=== PATIENT | female | born 1950 | race Caucasian/White ===

== ENCOUNTER 2022-06-29 22:35 | Emergency (ER) | payer MEDICARE, OTHER, SELFPAY ==
[2022-06-29 22:37] VITALS: BP 147/74; PULSE 64; RESP 14; TEMP 36.6; O2SAT 100
--- NOTE | 2022-06-29 23:21 | PC.NURSE ---
patient states her pain is gone and left from waiting room
== END 2022-06-29 23:21 | disposition left against medical advice (07) ==
PROVIDERS: PCP Internal Medicine
DX: R10.9 Unspecified abdominal pain (principal)
CPT/HCPCS: 99199

== ENCOUNTER 2022-06-30 12:36 | Emergency (ER) | payer MEDICARE, OTHER, SELFPAY ==
--- NOTE | ~2022-06-30 | CT_ITS ---
EXAMINATION: CTA chest PE abdomen pel DATE: 06/30/2022 15:04 INDICATION: Right flank pain. TECHNIQUE: Computed tomography angiography (CTA) of the chest was performed with 100 mL Omnipaque-350 intravenous contrast timed to evaluate the pulmonary arteries. Coronal maximum intensity projection 3D-reconstructions were created by the technologist. Computed tomography (CT) of the abdomen and pelv is was performed with intravenous contrast. Automated exposure control and iterative reconstruction t echnique were employed. The dose-length product was 377.74 mGy-cm. COMPARISON: Chest CT 09/14/2016, CT abdomen and pelvis 04/10/2012 FINDINGS: CTA chest: There is mild scarring at the lung apices. There is mild atelectasis bilaterally. No pleur al effusion. Cardiomegaly is noted. There are coronary artery calcifications. No pericardial effusion . There is no pulmonary embolus. There is mild thoracic spondylosis. There is mild chronic anterior w edging of multiple midthoracic vertebral bodies. CT abdomen and pelvis: There are cysts in the liver measuring up to 8 mm. The gallbladder, spleen, pa ncreas, adrenal glands, and right kidney are normal. There are cysts in left kidney measuring up to 4 mm. There is mild left hydronephrosis. There is a chronic phlebolith in left ovarian vein. There are calcified fibroids in the uterus. There is diverticulosis of the colon without evidence of diverticu litis. There are no dilated loops of bowel. The appendix is normal. There are no pathologically enlar ged lymph nodes. There is no free intraperitoneal fluid. There is mild lumbar spondylosis. IMPRESSION: 1. No pulmonary embolus. 2. Mild left hydronephrosis, new from 04/10/2012. Reviewed, dictated and finalized at location E.
[2022-06-30 12:45] VITALS: BP 145/60; PULSE 69; RESP 16; TEMP 36.6; O2SAT 100
[2022-06-30 13:01] LABS: Basophils Percent Auto 0.3 % (0.2-1.2); Eosinophils Percent Auto 0.2 % (0-4.4); Hematocrit 42.1 % (37.0-47.0); Hemoglobin 14.2 g/dL (12.0-15.0); Immature Granulocyte Absolute 0.02 K/mm3 (0.00-0.031); Immature Granulocyte Percent A 0.2 % (0-0.5); Lymphocytes Absolute Auto 1.15 K/mm3 (0.9-3.2); Lymphocytes Percent Auto 12.6 % (18.3-44.2); Mean Corpuscular HGB Conc 33.7 g/dl (32-36); Mean Corpuscular Hemoglobin 30.3 pg (26-34); Mean Platelet Volume 10.8 fl (7.4-10.4); Monocytes Absolute Auto 0.5 K/mm3 (0.1-0.6); Monocytes Percent Auto 4.9 % (2.6-8.5); Neutrophils Absolute Auto 7.5 K/mm3 (1.3-6.7); Neutrophils Percent Auto 81.8 % (45.5-73.1); Platelet Count Result 257 k/mm3 (150-375); Red Blood Count 4.68 M/mm3 (4.2-5.4); Red Cell Distribution Width 14.6 % (11.5-14.5); White Blood Count 9.1 K/mm3 (4.5-10.0)
[2022-06-30 13:05] LABS: Appearance Urine Clear (Clear); Bilirubin Urine Negative (Negative); Blood Urine Negative (Negative); Color Urine Yellow (Yellow); Glucose Urine UA Negative (Negative); Ketones Urine 1+ mg/dL (Negative); Leukocyte Esterase Ur Negative LEU/UL (Negative); Nitrate Urine Negative (Negative); Protein Urine Negative (Negative); Specific Grav Ur 1.014 (1.001-1.035); Urobilinogen Urine 0.2 mg/dL (<2.0); pH Urine 5.5 (5.0-9.0)
[2022-06-30 13:19] LABS: Add Urine Microscopic? NO
[2022-06-30 13:58] LABS: Alanine Aminotransferase 25 U/L (6-35); Albumin Level 4.8 g/dL (3.5-5.1); Alkaline Phosphatase 85 U/L (38-126); Anion Gap 6 mmol/L (8-16); Aspartate Amino Transferase 29 U/L (14-36); Bilirubin,Total 0.6 mg/dL (0.2-1.3); Blood Urea Nitrogen 14 mg/dL (7-17); Calcium 9.9 mg/dL (8.4-10.2); Carbon Dioxide 30 mmol/L (22-30); Chloride 101 mmol/L (98-107); Estimated CRCL calculation 51 ml/min; Estimated Glomerular Filt Rate > 60; Glucose 82 mg/dL (65-110); Potassium 4.4 mmol/L (3.4-5.0); Sodium 137 mmol/L (137-145)
--- NOTE | 2022-06-30 14:49 | ED.GENADULT ---
HPI - General Adult General Chief complaint: Urogenital-Female Stated complaint: back pain Time Seen by Provider: 06/30/22 13:59 History of Present Illness HPI narrative: 72-year-old female with history of kidney stones, IBS presented to the emergency department for evaluation of flank pain and abdominal pain. Patient states that she did have a stem cell treatment for her left knee on March 03 and approximate 2 weeks ago she had a booster for this. Patient reports after the procedure she was having some lower back pain and communicated this to her physician. Patient states over the last few days that she has increased flank pain. The flank pain initially started on the right but after arrival to the emergency department it is now on the left. Patient also reports some lower abdominal pain. Patient reports he does have a history of kidney stones and does have a history of IBS. Patient states he did have a bowel movement yesterday that was normal but then the bowel movement did progressed to some diarrhea. Related Data Allergies Allergy/AdvReac Type Severity Reaction Status Date / Time ciprofloxacin Allergy Intermediate Rash Verified 11/13/17 04:27 Sulfa (Sulfonamide Allergy Mild Verified 11/13/17 04:27 Antibiotics) Review of Systems Review of Systems: All systems reviewed & are unremarkable except as noted in HPI and below Exam Narrative: APPEARANCE: Well appearing, no pain, no distress, well-nourished. HEAD: normocephalic, atraumatic. EYES: PERRLA/EOMI, conjunctivae clear. NOSE: Normal no drainage NECK: Supple. No adenopathy, no masses. RESPIRATORY: Airway patent, respirations nonlabored. Clear to auscultation bilaterally, no rales, rhonchi, wheezing. CARDIOVASCULAR: Regular rate and rhythm without murmurs rubs or gallops. ABDOMINAL: Soft, nontender, nondistended, normal bowel sounds. Left flank tenderness. Suprapubic tenderness MUSCULOSKELETAL: Moves all extremities. Strength/ROM intact, No edema, No calf tenderness. NEURO: Alert. Cranial nerves II through XII intact. SKIN: Warm, dry. Normal Color Course Course Emergency Course: 72-year-old female presented the ED for evaluation of flank pain and abdominal pain. Patient was afebrile with no leukocytosis. Patient's CMP is similar to her baseline. UA shows no evidence of infection or hematuria. CT scan was ordered and showed no evidence of pulmonary embolism. Patient did have mild left hydronephrosis which was new from 2012. Patient reports she has had prior stents in the kidney. Patient was updated on the results of the work-up and plan for discharge. Patient was encouraged to take Tylenol and ibuprofen for pain control. Patient was also educated on reasons to return to the emergency department. Vital Signs Vital signs: Vital Signs Temperature 97.9 F 06/30/22 12:45 Pulse Rate 69 06/30/22 12:45 Respiratory Rate 16 06/30/22 12:45 Blood Pressure 145/60 H 06/30/22 12:45 Pulse Oximetry 100 06/30/22 12:45 Oxygen Delivery Room Air 06/30/22 12:45 Temperature 97.9 F 06/30/22 12:45 Pulse Rate 52 L 06/30/22 17:52 Respiratory Rate 18 06/30/22 17:52 Blood Pressure 156/77 H 06/30/22 17:52 Pulse Oximetry 100 06/30/22 17:52 Oxygen Delivery Room Air 06/30/22 12:45 Medical Decision Making Vital Signs Vital Signs: Vital Signs Temperature 97.9 F 06/30/22 12:45 Pulse Rate 69 06/30/22 12:45 Respiratory Rate 16 06/30/22 12:45 Blood Pressure 145/60 H 06/30/22 12:45 Pulse Oximetry 100 06/30/22 12:45 Oxygen Delivery Room Air 06/30/22 12:45 Temperature 97.9 F 06/30/22 12:45 Pulse Rate 52 L 06/30/22 17:52 Respiratory Rate 18 06/30/22 17:52 Blood Pressure 156/77 H 06/30/22 17:52 Pulse Oximetry 100 06/30/22 17:52 Oxygen Delivery Room Air 06/30/22 12:45 Lab Data Lab results reviewed: Yes I reviewed the patient's lab results. 06/30/22 12:50 06/30/22 13:34
[2022-06-30] MEDS: fentaNYL CITRATE INJ (*CRX) 100 MCG/2 ML VIAL 50 MCG IV PUSH (15:07)
[2022-06-30] MEDS: SODIUM CHLORIDE 0.9% IV 1,000 ML 500 ML IV CONT (15:07)
[2022-06-30 15:10] VITALS: BP 157/70; PULSE 54; RESP 18; O2SAT 100
[2022-06-30 17:52] VITALS: BP 156/77; PULSE 52; RESP 18; O2SAT 100
[2022-06-30] MEDS: KETOROLAC 15 MG/ML VIAL (*BKC) IV PUSH (17:56)
== END 2022-06-30 18:05 | disposition home or self-care (01) ==
PROVIDERS: Emergency Medicine; Emergency Provider Emergency Medicine; PCP Internal Medicine
DX: R10.9 Unspecified abdominal pain (principal); K58.9 Irritable bowel syndrome, unspecified; Z87.442 Personal history of urinary calculi; Z94.84 Stem cells transplant status; N13.30 Unspecified hydronephrosis
CPT/HCPCS: 36415; 71275; 74177; 80053; 81003; 85025; 96361; 96374; 96375; 99284; J1885; J3010; J7030; Q9967

== ENCOUNTER 2022-12-21 18:30 | Emergency (ER) | payer MEDICARE, OTHER, SELFPAY ==
--- NOTE | ~2022-12-21 | XR_ITS ---
EXAMINATION: XR ankle RT min 3V DATE: 12/21/2022 18:50 INDICATION: Right ankle pain and swelling. TECHNIQUE: 4 views of right ankle were obtained. COMPARISON: None. FINDINGS: Bone alignment is normal. No fracture. There is mild midfoot osteoarthritis. There is an en thesophyte at plantar aspect of calcaneal tuberosity. IMPRESSION: 1. Mild midfoot osteoarthritis. Reviewed, dictated and finalized at location E.
[2022-12-21 18:50] VITALS: BP 138/72; PULSE 64; RESP 16; TEMP 36.4; O2SAT 99
--- NOTE | 2022-12-21 18:54 | ED.LOWEXIN ---
HPI - Extremity Injury (Lower) General Chief Complaint: Extremity Injury, Lower Stated Complaint: Rt Ankle Pain and Swelling Due to Fall Time Seen by Provider: 12/21/22 18:55 Source: patient Mode of arrival: ambulatory Limitations: no limitations History of Present Illness HPI Narrative: 72-year-old female presents with complaint of right ankle pain with mild swelling. Patient reports that yesterday she was doing a yoga pose at home on a yoga ball and came down too fast and landed on feet, right ankle twisted. Pain when ambulatory. Concern for fracture. Range of motion and distal neurovascularly intact. All systems reviewed and negative except as noted above. Related Data Home Medications Medication Instructions Recorded Confirmed raloxifene 60 mg tablet 60 mg PO DAILY 12/21/22 12/21/22 Allergies Allergy/AdvReac Type Severity Reaction Status Date / Time ciprofloxacin Allergy Intermediate Rash Verified 11/13/17 04:27 Sulfa (Sulfonamide Allergy Mild Rash Verified 12/21/22 18:42 Antibiotics) Review of Systems Review of Systems: CONSTITUTIONAL: Denies fever, chills, or sweats. EYES: Denies visual changes, redness, or discharge. ENT: Denies rhinorrhea, congestion, sore throat, or otalgia. CARDIOVASCULAR: Denies chest pain, palpitations, or edema. RESPIRATORY: Denies cough or dyspnea. GASTROINTESTINAL: Denies abdominal pain, nausea, vomiting, or diarrhea. GENITOURINARY: Denies dysuria or hematuria. SKIN: Denies rash or itching. MUSCULOSKELETAL: Denies back pain. Reports pain and swelling to right ankle. NEUROLOGIC: Denies headache, numbness, or weakness. PSYCHIATRIC: Denies anxiety or depression. All other systems reviewed are negative, except as documented in HPI. PMFSH Comments At time of signature, agree with nursing past medical, surgical, social and family history. There is no relevant family history pertinent to the presenting complaint. Exam Narrative: GENERAL: This is a well-nourished, well-developed patient, in no apparent distress. HEAD: normocephalic, atraumatic. EYES: PERRL. Sclera clear/white. Vision is grossly intact. EARS: External ears normal NOSE: External nose normal NECK: Neck supple, non-tender without lymphadenopathy, masses or thyromegaly. CARDIOVASCULAR: Regular rate and rhythm without murmurs, gallops, or rubs. RESPIRATORY: Clear to auscultation. Breath sounds equal bilaterally. No wheezes, rales, or rhonchi. SKIN: warm, Dry, intact with no suspicious lesions or rash, good texture and turgor. NEURO: awake, alert, and oriented to person, place and time. There were no obvious focal neurologic abnormalities. EXTREMITIES: Tenderness to lateral aspect right ankle over the malleolus. Mild swelling noted. Range of motion and distal neurovascularly intact. No instability. Course Course Level of Care: Express Care Visit Vital Signs Vital signs: Vital Signs Temperature 36.4 C 12/21/22 18:50 Pulse Rate 64 12/21/22 18:50 Respiratory Rate 16 12/21/22 18:50 Blood Pressure 138/72 12/21/22 18:50 Pulse Oximetry 99 12/21/22 18:50 Temperature 36.4 C 12/21/22 18:50 Pulse Rate 64 12/21/22 18:50 Respiratory Rate 16 12/21/22 18:50 Blood Pressure 138/72 12/21/22 18:50 Pulse Oximetry 99 12/21/22 18:50 Reviewed MDM - Extremity Injury (Lower) MDM Narrative Medical decision making narrative: Discussed x-ray results with patient. Patient placed in Quintin wrap for mild sprain. Patient is aware of diagnosis, understands and agrees to treatment plan. Anticipatory guidance given. Patient agrees to follow-up as directed and is aware of reasons to seek care at the emergency department. Portions of this record may have been created with voice recognition software Differential Diagnosis Differential diagnosis: Likely ankle sprain and strain Imaging Data My impression: Agree with radiologist Radiologist's impression: EXAMINATION: XR ankle
== END 2022-12-21 19:14 | disposition home or self-care (01) ==
PROVIDERS: Emergency Provider Nurse Practitioner Family; PCP Internal Medicine
DX: S93.401A Sprain of unspecified ligament of right ankle, initial encounter (principal); X50.9XXA Other and unspecified overexertion or strenuous movements or postures, initial encounter; Y93.42 Activity, yoga
CPT/HCPCS: 73610; 99213; G0463

== ENCOUNTER 2023-07-23 08:01 | Emergency (ER) | payer MEDICARE, OTHER, SELFPAY ==
--- NOTE | ~2023-07-23 | XR_ITS ---
EXAMINATION: XR lumbar spine 2-3V DATE: 07/23/2023 08:29 INDICATION: Low back pain. Fall. TECHNIQUE: 3 views of lumbar spine were obtained. COMPARISON: Lumbar spine radiographs 10/19/2013 FINDINGS: There is 4 mm anterolisthesis of L4 on L5 and 3 mm anterolisthesis of L5 on S1. Vertebral b david heights are normal. There are endplate osteophytes at many levels. Intervertebral disc heights ar e normal. There is multilevel facet joint osteoarthritis, severe in lower lumbar spine. There is a ca lcified uterine fibroid. IMPRESSION: 1. Mild lumbar spondylosis. Reviewed, dictated and finalized at location A. IMPRESSION: 1. Mild lumbar spondylosis.
--- NOTE | 2023-07-23 08:03 | ED.BACK ---
HPI - Back Pain/Injury General Chief Complaint: Back Pain/Injury Stated Complaint: Back Pain Time Seen by Provider: 07/23/23 08:02 Source: patient Mode of arrival: ambulatory Limitations: no limitations History of Present Illness HPI Narrative: Hortencia is a 73-year-old female patient presenting to the clinic today with complaints of low back pain after falling yesterday. She reports she slipped on some water and her feet went out from underneath her and she landed on her low back. Is reporting pain to the low back. Pain is worse with movement/walking. Denies any saddle anesthesia or loss of bowel or bladder. Denies hitting her head or any neck pain. Takes a baby aspirin daily. Related Data Home Medications Medication Instructions Recorded Confirmed raloxifene 60 mg tablet 60 mg PO DAILY 12/21/22 07/23/23 aspirin 81 mg tablet,delayed 81 mg PO DAILY 07/23/23 07/23/23 release celecoxib 100 mg capsule 100 mg PO DAILY 07/23/23 07/23/23 Allergies Allergy/AdvReac Type Severity Reaction Status Date / Time ciprofloxacin Allergy Intermediate Rash Verified 07/23/23 08:18 Sulfa (Sulfonamide Allergy Mild Rash Verified 07/23/23 08:18 Antibiotics) Review of Systems Review of Systems: Pertinent positives per HPI. Patient denies any fever, chills, rash, headache, visual changes, dizziness, cough, runny nose, sore throat, shortness of breath, chest pain, palpitations, nausea, vomiting, diarrhea, constipation, abdominal pain, or any urinary issues. PMFSH Comments At the time of my signature, I reviewed and agree with the nursing past medical, surgical, social, and family history. There is no relevant family history pertinent to the patient complaint. Exam Narrative: General: Well-developed, well nourished, in no apparent distress Head: Normocephalic, atraumatic. Cardio: Regular rate and rhythm, s1 and s2 normal, no murmur appreciated. Resp: Clear to auscultation bilaterally, no rhonchi, rales, wheezing or rubs. Musculoskeletal: No deformity, tender to palpation over the mid and lower lumbar spine, grossly normal range of motion, patellar reflexes 2+, muscle strength strong and equal, peripheral pulse strong, no edema, no cyanosis, normal gait and station Course Course Emergency Course: Portions of this record may have been created with voice recognition software. Level of Care: Express Care Visit Vital Signs Vital signs: Vital signs reviewed MDM - Back Pain/Injury MDM Narrative Medical decision making narrative: At the time of visit patient is resting comfortably on the exam table. Patient appears to be nontoxic. Diagnostics: X-ray of the lumbar spine was performed and was negative for any sign of fracture or malalignment. Does show mild lumbar spondylosis Plan: I suspect patient has a lumbar contusion/acute low back pain. Supportive measures were discussed with the patient and they voiced understanding discharge instructions and agrees to treatment plan. Return precautions reviewed Differential Diagnosis Differential diagnosis: Likely lumbar radiculopathy, sciatica, strain of lumbar region and other (lumbar fracture, contusion) Imaging Data Radiologist's impression: ITS Impressions Lumbar Spine X-Ray 07/23/23 08:32 IMPRESSION: 1. Mild lumbar spondylosis. Discharge Plan Discharge Clinical Impression: Lumbar contusion Qualifiers: Encounter type: initial encounter Qualified Code(s): S30.0XXA - Contusion of lower back and pelvis, initial encounter Low back pain Qualifiers: Chronicity: acute Back pain laterality: midline Sciatica presence: without sciatica Qualified Code(s): M54.50 - Low back pain, unspecified Patient Disposition: Home, Self-Care Condition: Stable Instructions: Antibiotic Form, Acute Low Back Pain (ED), Lower Back Exercises (ED) Additional Instructions: X-rays negative for any sign of fracture or malalignment of the lumbar spine. Does show mil
[2023-07-23 08:15] VITALS: BP 122/66; PULSE 68; RESP 16; TEMP 36.8; O2SAT 100
[2023-07-23 08:19] VITALS: BP 122/66; PULSE 68; RESP 16; TEMP 36.8; O2SAT 100
== END 2023-07-23 08:55 | disposition home or self-care (01) ==
PROVIDERS: Emergency Provider Nurse Practitioner Family; PCP Internal Medicine
DX: S30.0XXA Contusion of lower back and pelvis, initial encounter (principal); W01.0XXA Fall on same level from slipping, tripping and stumbling without subsequent striking against object, initial encounter; Z79.82 Long term (current) use of aspirin
CPT/HCPCS: 72100; 99213; G0463